=== PATIENT | female | born 1940 | race Caucasian/White ===

== ENCOUNTER 2022-03-12 13:01 | Emergency (ER) | payer MEDICARE ==
[~2022-03-12] VITALS: Ht 170.2 cm; Wt 59.4 kg
[2022-03-12 13:38] LABS: BASOPHILS ABSOLUTE AUTO 0.02 K/mm3 (0.00-0.23); BASOPHILS PERCENT AUTO 0 % (0-2); EOSINOPHILS PERCENT AUTO 0 % (0-6); Hematocrit 41.9 % (33.0-51.0); Hemoglobin 13.1 g/dL (11.5-16.0); IMMATURE GRAN ABSOLUTE AUTO 0.02 K/mm3 (0.00-0.10); IMMATURE GRAN PERCENT AUTO 0 % (0-1); LYMPHOCYTES ABSOLUTE AUTO 0.91 K/mm3 (0.84-5.20); LYMPHOCYTES PERCENT AUTO 13 % (21-46); MONOCYTES PERCENT AUTO 14 % (4-13); Mean Corpuscular HGB 29.2 pg (26.0-34.0); Mean Corpuscular HGB Conc 31.3 g/dL (31.5-36.5); Mean Corpuscular Volume 93 fL (80-100); Mean Platelet Volume 9.9 fL (9.1-12.4); NEUTROPHILS ABSOLUTE AUTO 5.16 K/mm3 (1.96-9.15); NEUTROPHILS PERCENT AUTO 73 % (41-73); Platelet Count 236 K/mm3 (150-400); RDW Standard Deviation 44.2 fL (35.1-46.3); Red Blood Cell Count 4.49 M/mm3 (3.80-5.20); White Blood Cell Count 7.11 K/mm3 (4.00-11.30)
[2022-03-12 13:51] LABS: Albumin, Blood 3.2 g/dL (3.4-5.0); Albumin/Globulin Ratio 0.7 (0.8-1.8); Bun/Creatinine Ratio 16.7 (12.0-20.0); Calcium, Blood 9.2 mg/dL (8.5-10.1); Creatinine, Blood 0.6 mg/dL (0.40-1.00); Globulin, Blood 4.3 g/dL (2.2-4.0); Potassium, Blood 4.1 mmol/L (3.5-5.5); Total Protein, Blood 7.5 g/dL (6.4-8.2)
[2022-03-13] MEDS ORDERED: ASPI81CH PO (08:29)
[2022-03-13] MEDS ORDERED: CEPH500 PO (11:43)
[2022-03-13] MEDS ORDERED: ALBU8HFA2 INH (13:00)
[2022-03-13] MEDS ORDERED: ANORO ELLIPTA1 EACH INH (13:01)
== END 2022-03-12 16:19 | disposition left against medical advice (07) ==
LOC: ER 13:01
PROVIDERS: Student in an Organized Health Care Education/Training Program
DX: S72.145A Nondisplaced intertrochanteric fracture of left femur, initial encounter for closed fracture (principal); J44.9 Chronic obstructive pulmonary disease, unspecified; Z53.29 Procedure and treatment not carried out because of patient's decision for other reasons; Z88.5 Allergy status to narcotic agent; Z87.891 Personal history of nicotine dependence; W19.XXXA Unspecified fall, initial encounter
CPT/HCPCS: 80053; 85025; 97161; 97530; A9270; J1885; J3010

== ENCOUNTER 2022-03-13 08:01 | Inpatient (IN) | payer MEDICARE ==
[~2022-03-13] VITALS: Ht 170.2 cm; Wt 59.4 kg
[2022-03-13] MEDS ORDERED: ASPI81CH PO (08:29)
[2022-03-13 08:58] LABS: Bun/Creatinine Ratio 21.5 (12.0-20.0); Calcium, Blood 9.1 mg/dL (8.5-10.1); Creatinine, Blood 0.65 mg/dL (0.40-1.00); Potassium, Blood 3.7 mmol/L (3.5-5.5)
[2022-03-13 09:07] LABS: BASOPHILS ABSOLUTE AUTO 0.03 K/mm3 (0.00-0.23); BASOPHILS PERCENT AUTO 1 % (0-2); EOSINOPHILS ABSOLUTE AUTO 0.02 K/mm3 (0.00-0.68); EOSINOPHILS PERCENT AUTO 0 % (0-6); Hematocrit 40.1 % (33.0-51.0); Hemoglobin 12.8 g/dL (11.5-16.0); IMMATURE GRAN ABSOLUTE AUTO 0.02 K/mm3 (0.00-0.10); IMMATURE GRAN PERCENT AUTO 0 % (0-1); LYMPHOCYTES ABSOLUTE AUTO 0.92 K/mm3 (0.84-5.20); LYMPHOCYTES PERCENT AUTO 14 % (21-46); MONOCYTES ABSOLUTE AUTO 0.87 K/mm3 (0.16-1.47); MONOCYTES PERCENT AUTO 14 % (4-13); Mean Corpuscular HGB 29.7 pg (26.0-34.0); Mean Corpuscular HGB Conc 31.9 g/dL (31.5-36.5); Mean Corpuscular Volume 93 fL (80-100); Mean Platelet Volume 9.9 fL (9.1-12.4); NEUTROPHILS PERCENT AUTO 71 % (41-73); Platelet Count 215 K/mm3 (150-400); RDW Coefficient Variation 12.8 % (11.7-14.2); Red Blood Cell Count 4.31 M/mm3 (3.80-5.20); White Blood Cell Count 6.46 K/mm3 (4.00-11.30)
[2022-03-13] MEDS ORDERED: CEPH500 PO (11:43)
[2022-03-13] MEDS ORDERED: ALBU8HFA2 INH (13:00)
[2022-03-13] MEDS ORDERED: ANORO ELLIPTA1 EACH INH (13:01)
[2022-03-13 13:29] LABS: Source, Urine Foley catheter
--- NOTE | 2022-03-13 13:30 | NUR ---
PATIENT CAME UP FROM ER TODAY 03/13/22 AT 1330. LEFT HIP FX PATIENT IS A&OX4 BUT CAN BE IRRITATED EASILY AT TIMES AND REPORTS "I JUST WANT THIS DONE AND OVER WITH". PAIN IS MANAGED WITH IV PAIN MEDICATIONS AT THIS TIME. SHE IS ON 3L NC OF OXYGEN WHICH IS HER BASELINE. LEFT HIP IS SWOLLEN AND EXTERNALLY ROTATED. SHE DENIES NUMBNESS AND TINGLING. SHE CAN MOVE ALL FINGERS AND TOES. GA IS IN PLACE AND DRAINING PER GRAVITY YELLOW URINE. SHE IS TOLERATING PO INTAKE. CALL LIGHT WITHIN REACH AND DAUGHTER IS AT BEDSIDE.
[2022-03-13 13:47] LABS: Bilirubin, Urine Neg (Neg); Blood, Urine 1+ (Neg); Glucose Qualitative, Urine Neg (Neg); Ketones, Urine 3+ (Neg); Leukocyte Esterase, Urine 2+ (Neg); Nitrite, Urine Neg (Neg); Protein, Urine Neg (Neg); Urobilinogen, Urine NORM (Normal)
[2022-03-13 14:23] LABS: Appearance, Urine Hazy (Clear); Color, Urine Pale Yellow (P-Yellow)
[2022-03-13 14:25] LABS: Bacteria Few /hpf; Renal Epithelial Rare /hpf (0-Rare); Squamous Epithelial Cells Few /hpf (Few)
--- NOTE | 2022-03-13 15:38 | NUR ---
SHIFT SUMMARY: LEFT HIP FX PATIENT IS A&OX4. PAIN IS MANAGED WITH IV PAIN MEDICATION. LEFT HIP IS SWOLLEN AND PAINFUL WITH MOVEMENT. SHE DENIES NUMBNESS AND TINGLING. PATIENT CAN MOVE ALL FINGERS AND TOES WHEN ASKED. PATIENT IS TOLERATING SMALL AMOUNTS OF PO INTAKE. GA IS DRAINING PER GRAVITY WITH NO KINKS IN TUBING. CALL LIGHT IS WITHIN REACH. PATIENT IS LAYING IN BED. THE PLAN IS TO BE NPO AT MIDNIGHT AND HAVE SURGERY SOMETIME TOMORROW.
--- NOTE | 2022-03-14 00:08 | NUR ---
ASSUMED CARE @2330. PATIENT AOX4 VSS. DENIES PAIN AT THIS TIME. NPO @ MIDNIGHT. WILL CONTINUE TO MONITOR. CALL LIGHT IN REACH.
--- NOTE | 2022-03-14 03:53 | NUR ---
SHIFT SUMMARY ASSUMED CARE OF PATIENT FROM [facility]NA[facility]. NPO SINCE MIDNIGHT, PLAN FOR SURGERY IN AM. PATIENT REPORTS PAIN AND UNCOMFORT HOWEVER REFUSED PAIN MEDICATION FROM THIS RN MULTIPLE TIMES. REPOSITIONED ON PILLOWS AND TURNED ON UNEFFECTED SIDE. PATIENT REPORTED LESS PAIN WITH REPOSITIONING. PATIENT IS A&OX4, AND IS ABLE TO MAKE NEEDS KNOWN. VSS WITH 3L NC SATS IN UPPER 90'S, PATIENT STATES THIS IS HER BASELINE AT HOME. GA PATENT AND DARINING YELLOW CLEAR URINE. IV FLUIDS INFUSING. CALL LIGHT IN REACH WILL REPORT TO DAY RN.
[2022-03-14 04:41] LABS: BASOPHILS ABSOLUTE AUTO 0.03 K/mm3 (0.00-0.23); BASOPHILS PERCENT AUTO 1 % (0-2); EOSINOPHILS ABSOLUTE AUTO 0.08 K/mm3 (0.00-0.68); EOSINOPHILS PERCENT AUTO 1 % (0-6); Hematocrit 39.2 % (33.0-51.0); Hemoglobin 12.6 g/dL (11.5-16.0); IMMATURE GRAN ABSOLUTE AUTO 0.01 K/mm3 (0.00-0.10); IMMATURE GRAN PERCENT AUTO 0 % (0-1); LYMPHOCYTES ABSOLUTE AUTO 1.26 K/mm3 (0.84-5.20); LYMPHOCYTES PERCENT AUTO 22 % (21-46); MONOCYTES ABSOLUTE AUTO 0.96 K/mm3 (0.16-1.47); MONOCYTES PERCENT AUTO 16 % (4-13); Mean Corpuscular HGB 29.6 pg (26.0-34.0); Mean Corpuscular HGB Conc 32.1 g/dL (31.5-36.5); Mean Corpuscular Volume 92 fL (80-100); Mean Platelet Volume 9.8 fL (9.1-12.4); NEUTROPHILS ABSOLUTE AUTO 3.52 K/mm3 (1.96-9.15); NEUTROPHILS PERCENT AUTO 60 % (41-73); Platelet Count 197 K/mm3 (150-400); RDW Coefficient Variation 12.4 % (11.7-14.2); Red Blood Cell Count 4.25 M/mm3 (3.80-5.20); White Blood Cell Count 5.86 K/mm3 (4.00-11.30)
[2022-03-14 05:20] LABS: Thyroid Stimulating Hormone 5.81 uIU/mL (0.360-4.800)
[2022-03-14 05:22] LABS: Bun/Creatinine Ratio 22.4 (12.0-20.0); Calcium, Blood 8.3 mg/dL (8.5-10.1); Creatinine, Blood 0.45 mg/dL (0.40-1.00); Potassium, Blood 3.7 mmol/L (3.5-5.5)
--- NOTE | 2022-03-14 08:30 | NUR ---
ASSUMPTION OF CARE YOANA BENAVIDES AND DANIEL RN ASSUMED CARE OF PATIENT AT 0700. REPORT TAKEN FROM KARSTEN BENAVIDES. PATIENT'S VITALS STABLE. PATIENT ON 3L NC WHICH IS HER BASELINE. GA CATHETER PATENT AND DRAINING TO GRAVITY. PATIENT REPORTS FEELING THE URGE TO VOID; EDUCATION GIVEN ABOUT HAVING A NEW CATHETER AND HAVING THIS FEELING. PATIENT REPORTS FRUSTRATION ABOUT HER NPO STATUS AND WANTING TO EAT/DRINK. EDUCATION GIVEN ABOUT MAJOR SURGERY AND THE NEED TO REMAIN NPO UNTIL AFTER THE SURGERY. PATIENT CONTINUES TO REPORT IRRITATION/FRUSTRATION AFTER EDUCATION BUT AGREES TO REMAIN NPO. LR RUNNING INTO LAC IV. PATIENT REPORTS PAIN BUT REFUSES MEDICATION AND NONPHARMACOLOGIC INTERVENTIONS SUCH REPOSITIONING. THIS RN WILL CONTINUE TO OFFER INTERVENTIONS AND REASSESS. PATIENT SCHEDULED FOR LEFT HIP FX LATER THIS AFTERNOON. PATIENT HAS BEEN NPO SINCE MIDNIGHT. PULSE STRONG IN DISTAL LEFT FOOT. LEG WARM AND FREE OF DISCOLORATION. PATIENT DENIES NUMBNESS/TINGLING. BED IN LOWEST POSITION AND CALL LIGHT WITHIN REACH.
[2022-03-14 09:07] LABS: SARS-Cov-2 (COVID-19) PCR, MMC NEGATIVE (NEGATIVE)
--- NOTE | 2022-03-14 13:20 | NUR ---
PATIENT UPDATE CALL FROM SURGICAL TEAM WITH PLAN TO GET PATIENT IN APPROXIMATELY 20 MINUTES. TEAM INFORMED THAT GA CATHETER IS IN PLACE AND DRAINING TO GRAVITY. THIS RN FLUSHED AND SALINE LOCKED LAC IV. PATIENT UPDATED ON PLAN TO GO TO SURGERY SOON. CALL LIGHT IN REACH AND BED IN LOWEST POSITION. WILL CONTINUE TO MONITOR UNTIL TRANSFER TO SURGERY. PLAN FOR PATIENT TO RETURN TO ROOM AND CARE OF THIS RN.
--- NOTE | 2022-03-14 13:48 | NUR ---
FROM SURGICAL FLOOR TO LOCATED WITHIN [facility] ADMISSION TO UNIT TO PREPARE FOR SURGERY. ON
--- NOTE | 2022-03-14 14:21 | NUR ---
CARE TURNED OVER TO FREDERICK STEPHANIE.
--- NOTE | 2022-03-14 14:24 | NUR ---
PT PRESENTED TO [facility] WITH 18G TO LEFT AC. LOI LU RN HOOKED PATIENT UP TO FLUIDS AND IV STARTED LEAKING. LOI LU RN DC'd IV APPROX 1410 WNL/CATHETER INTACT.
--- NOTE | 2022-03-14 14:30 | NUR ---
RECENTLY ASSUMED CARE OF PT AFTER GETTING REPORT.
--- NOTE | 2022-03-14 15:50 | NUR ---
03/14/22 2970 Loren Acharya PT HAD GA CATH IN PLACE PRIOR TO ENTERING OR.
--- NOTE | 2022-03-14 18:08 | NUR ---
TRANSFER UPDATE PATIENT BROUGHT BACK FROM SURGERY. LEFT HIP FRACTURE SURGERY COMPLETE WITH L HIP NAIL. [address] ON LEFT HIP. NO BLEEDING/OOZING/DISCOLORATION OR SIGNS OF SWELLING PRESENT. PATIENT DENIES PAIN. PATIENT HAS PREVIOUS REFUSED PAIN MEDICATIONS FOR PAIN. PATIENT IS TEARFUL WITH DAUGHTER AT BEDSIDE. PATIENT ON 3L NASAL CANULA WHEN RETURNING TO ROOM WHICH IS HER HOME BASELINE. PATIENT WITH O2 SATS 86-88% ON 3L. INCREASED O2 TO 4L AND RAISED HOB TO MAINTAIN O2 SATS >90%. PATIENT DENIES SOB AND DOES NOT SHOW S/S OF RESPIRATORY DISTRESS. GA CATHETER IN PLACE AND DRAINING TO GRAVITY. TXA AND LR RUNNING IN RAC IV PER EMAR. PULSES STRONG IN LEG. PATIENT IS ABLE TO WIGGLE TOES AND REPORTS GOOD SENSATION WITH PALPATION. DENIES NUMBNESS/TINGLING. VITALS STABLE AT THIS TIME. WILL CONTINUE TO MONITOR UNTIL SHIFT CHANGE AT 1900.
--- NOTE | 2022-03-15 06:38 | NUR ---
SHIFT SUMMARY POD1 L HIP RODDING, A/O X4, VSS, TOLERATING PO, FLAT AFFECT AND MINIMALLY INTERACTIVE WITH STAFF, COOPERATIVE BUT IRRITABLE. DENIES ANY NEEDS, NO ACUTE EVENTS THIS SHIFT, CALL LIGHT IN REACH, WILL CTM AND REPORT TO ONCOMING DAY RN.
--- NOTE | 2022-03-15 16:39 | NUR ---
DISCHARGE NOTE: PATIENT AND PATIENTS DAUGHTER WERE EDUCATED ON DISCHARGE INSTRUCTIONS. BOTH VERBALIZED UNDERSTANDING OF INSTRUCTIONS. IV WAS TAKEN OUT AND WNL. AQUACEL DRESSING ON HER LEFT HIP IS C/D/I. DENIES NUMBNESS AND TINGLING. PATIENT HAS REFUSED ANY AND ALL PAIN MEDICATIONS AND REPORTS "I DO NOT NEED ANYTHING FOR PAIN". SHE IS A SBA WITH A FWW AND GAIT BELT. SHE IS TOLERATING PO INTAKE AND IS VOIDING. PATIENT IS DRESSED AND HAS ITEMS IN THE ROOM GATHERED. SHE IS BEING WHEELCHAIRED OUT TO HER DAUGHTERS CAR TO BE TAKEN HOME.
== END 2022-03-15 16:38 | disposition home or self-care (01) | DRG 481 ==
LOC: ER 08:01 → SURS 10:05
PROVIDERS: Hospitalist; Orthopaedic Surgery; Physician Assistant; ADMIT Family Medicine
PROC: 0QH736Z Insertion of Intramedullary Internal Fixation Device into Left Upper Femur, Percutaneous Approach (ICD-10-PCS; principal; 2022-03-14 14:30)
DX: S72.142A Displaced intertrochanteric fracture of left femur, initial encounter for closed fracture (principal); I13.0 Hypertensive heart and chronic kidney disease with heart failure and stage 1 through stage 4 chronic kidney disease, or unspecified chronic kidney disease; J96.10 Chronic respiratory failure, unspecified whether with hypoxia or hypercapnia; E03.9 Hypothyroidism, unspecified; M81.0 Age-related osteoporosis without current pathological fracture; N18.9 Chronic kidney disease, unspecified; J44.9 Chronic obstructive pulmonary disease, unspecified; I50.9 Heart failure, unspecified; W18.30XA Fall on same level, unspecified, initial encounter; Z20.822 Contact with and (suspected) exposure to COVID-19; Z87.891 Personal history of nicotine dependence; Z88.5 Allergy status to narcotic agent; Z90.49 Acquired absence of other specified parts of digestive tract; Z99.81 Dependence on supplemental oxygen; Z79.51 Long term (current) use of inhaled steroids; Z79.82 Long term (current) use of aspirin; Z79.899 Other long term (current) drug therapy
CPT/HCPCS: 36415; 51702; 73501; 73552; 80048; 81001; 84443; 85025; 87086; 93005; 93010; 94760; 97110; 97116; 97161; 97166; 97530; 97535; 99285-25; A9270; C1713; J0690; J0696; J1100; J1170; J2370; J2405; J2704; J3010; J7030; J7120; U0004